=== PATIENT | male | born 1955 | race African-American/Black ===

== ENCOUNTER 2023-05-15 12:28 | Emergency (ER) | payer MEDICAID ==
[~2023-05-15] VITALS: Ht 167.6 cm; Wt 70.0 kg
[~2023-05-15 12:28] MED LIST: AMLO2.5T45 PO; ASPI-1073 PO; COR6 PO; FURO-152 PO; LIP40 PO; LISI20TA31 PO
[2023-05-15 12:35] VITALS: BP 176/94; PULSE 82; RESP 16; TEMP 98.2; O2SAT 99
[2023-05-15] MEDS ORDERED: B50 MT (13:06)
[2023-05-15] MEDS ORDERED: DIPHENHYDRAMINE 25MG CAPSULE PO ONE (13:15)
== END 2023-05-15 13:28 | disposition home or self-care (01) ==
LOC: ER 12:28
DX: T78.40XA Allergy, unspecified, initial encounter (principal); X58.XXXA Exposure to other specified factors, initial encounter
CPT/HCPCS: 99283; Q0163